=== PATIENT | male | born 1965 | race African-American/Black ===

== ENCOUNTER 2017-02-25 09:41 | Emergency (ER) | payer OTHER ==
[~2017-02-25] VITALS: Ht 177.8 cm; Wt 74.8 kg
[2017-02-25 10:37] LABS: ABSOLUTE BASOPHIL COUNT 0 /CUMM (0.0-0.2); ABSOLUTE EOSINOPHIL COUNT 0 /CUMM (0.0-0.7); ABSOLUTE GRANULOCYTE CT 0.7 /CUMM (1.4-6.5); ABSOLUTE MONOCYTE COUNT 0.3 /CUMM (0.10-0.60); BASOPHIL % 0.4 % (0.0-2.0); EOSINOPHIL % 0.1 % (0-5); HEMATOCRIT 40.1 % (42-52); MEAN CORPUSCULAR HGB CONC 34.8 G/DL (33.0-37.0); MEAN CORPUSCULAR VOLUME 94.7 FL (80.0-94.0); MEAN PLATELET VOLUME 8.8 FL (7.4-10.4); PLATELET COUNT 127 /CUMM (130-400); RBC DISTRIBUTION WIDTH 13.9 % (11.5-14.5); RED BLOOD CELL CT 4.24 /CUMM (4.70-6.10); WHITE BLOOD CELL COUNT 2.9 /CUMM (4.8-10.8)
[2017-02-25 10:41] LABS: GRANULOCYTE % 22.7 % (42.2-75.2)
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
[2017-02-25 20:10] VITALS: BP 113/71
== END 2017-02-25 20:19 ==
LOC: ERH 09:41
PROVIDERS: Physician Assistant Medical
DX: F10.121 Alcohol abuse with intoxication delirium (principal); E87.6 Hypokalemia
CPT/HCPCS: 80307; 93005; 93010; G0480